=== PATIENT | female | born 1950 | race Caucasian/White ===

== ENCOUNTER 2023-09-16 14:08 | Inpatient (IN) | payer MEDICARE, OTHER ==
[~2023-09-16] VITALS: Ht 167.6 cm; Wt 94.3 kg
[2023-09-16] MEDS ORDERED: MAG HYDROX/AL HYDROX/SIMETH 30 ML LIQUID UDC PO PRN (16:15)
[2023-09-16] MEDS ORDERED: QUETIAPINE FUMARATE 25 MG TABLET PO PRN (16:15)
[2023-09-16] MEDS ORDERED: MAGNESIUM HYDROXIDE 30 ML LIQUID UDC PO PRN ×2 (16:15→17:00)
[2023-09-16] MEDS ORDERED: QUET25TA PO (16:30)
[2023-09-16] MEDS ORDERED: ACET-73 PO (16:30)
[2023-09-16] MEDS ORDERED: ATOR40TA PO (16:30)
[2023-09-16] MEDS ORDERED: FAMO20TA8 PO (16:30)
[2023-09-16] MEDS ORDERED: ASPI81TA31 PO (16:30)
[2023-09-16] MEDS ORDERED: MAGN400O6 PO (16:30)
[2023-09-16] MEDS ORDERED: METO50TA16 PO (16:30)
[2023-09-16] MEDS ORDERED: CALC-381 PO (16:30)
[2023-09-16] MEDS ORDERED: LORA-259 PO (16:30)
[2023-09-16] MEDS ORDERED: LEVE500T9 PO (16:30)
[2023-09-16] MEDS ORDERED: DIVA250T4 PO (16:30)
[2023-09-16] MEDS ORDERED: ACET325T53 PO (16:30)
[2023-09-16] MEDS: BLOOD SUGAR DIAGNOSTIC 1 EACH STRIP VI ONE (16:47)
[2023-09-16] MEDS ORDERED: ACETAMINOPHEN 325 MG TABLET PO PRN (17:00)
[2023-09-16] MEDS ORDERED: ACETAMINOPHEN 500 MG TABLET PO PRN (17:00)
[2023-09-16 17:04] VITALS: BP 149/90; TEMP 98; O2SAT 96
[2023-09-16] MEDS: ASPIRIN 81 MG TAB.CHEW PO SCH (17:42)
[2023-09-16 20:18] VITALS: BP 147/69; TEMP 98.1; O2SAT 96
[2023-09-16] MEDS: OLANZAPINE 2.5 MG TABLET PO SCH (21:13)
[2023-09-16] MEDS: ATORVASTATIN 40 MG TABLET PO SCH (21:13)
[2023-09-16] MEDS: DIVALPROEX 250 MG TABLET.DR PO SCH (21:14)
[2023-09-16] MEDS: METOPROLOL TARTRATE 50 MG TABLET PO SCH (21:14)
[2023-09-16] MEDS: levETIRAcetam 500 MG TABLET PO SCH (21:19)
[2023-09-17 07:40] LABS: BASOPHILS # (AUTO) 0.1 K/UL (0.0-0.2); BASOPHILS % (AUTO) 0.9 % (0.0-2.0); EOSINOPHILS # (AUTO) 0.3 K/uL (0.0-0.7); EOSINOPHILS % (AUTO) 3.5 % (0.0-7.0); HEMATOCRIT 39.7 % (31.2-41.9); HEMOGLOBIN 12.7 g/dL (10.9-14.3); LYMPHOCYTES # (AUTO) 1.6 K/uL (0.8-4.8); MEAN CORPUSCULAR HEMOGLOBIN 28.5 uug (24.7-32.8); MEAN CORPUSCULAR HGB CONC 32 g/dL (32.3-35.6); MEAN CORPUSCULAR VOLUME 89.2 fL (75.5-95.3); MONOCYTES # (AUTO) 0.8 K/uL (0.1-1.30); MONOCYTES % (AUTO) 8.4 % (0.0-11.0); NEUTROPHILS % (AUTO) 71.2 % (38.5-71.5); PLATELET COUNT (AUTO) 262 K/uL (179-408); RED BLOOD CELL COUNT(AUTO) 4.45 MIL/uL (3.63-4.92); RED CELL DISTRIBUTION WIDTH 14.5 % (12.3-17.7); WHITE BLOOD COUNT (AUTO) 9.8 K/uL (3.8-11.8)
[2023-09-17 07:43] LABS: DIFFERENTIAL COMMENT 1
[2023-09-17 07:52] VITALS: BP 135/60; TEMP 97.6; O2SAT 98
[2023-09-17 07:52] LABS: ALBUMIN 2.7 g/dL (3.4-5.0); BILIRUBIN,TOTAL 0.6 mg/dL (0.2-1.0); CALCIUM 8.3 mg/dL (8.5-10.1); CREATININE 1.1 mg/dL (0.6-1.3); POTASSIUM 4.1 mmol/L (3.5-5.1); TOTAL PROTEIN, SERUM 6.4 g/dL (6.4-8.2)
[2023-09-17] MEDS: FAMOTIDINE 20 MG TABLET PO SCH (09:02)
[2023-09-17] MEDS: CALCIUM CARB/VITAMIN D 500MG-200UNITS TABLET PO SCH (09:05)
[2023-09-17] MEDS: busPIRone 5 MG TABLET PO SCH (13:32)
[2023-09-17 16:00] VITALS: BP 141/63; TEMP 97.8; O2SAT 97
[2023-09-17 20:00] VITALS: BP 127/51; TEMP 98.6; O2SAT 95
[2023-09-18 08:08] VITALS: BP 145/67; TEMP 98.2; O2SAT 98
[2023-09-18 15:28] VITALS: BP 134/60; TEMP 98; O2SAT 96
[2023-09-18 20:00] VITALS: BP 130/70; TEMP 98.5; O2SAT 93
[2023-09-19 08:30] VITALS: BP 158/46; TEMP 97.7; O2SAT 98
[2023-09-19 17:08] VITALS: BP 113/46; TEMP 97.8; O2SAT 97
[2023-09-19] MEDS: OLANZAPINE 2.5 MG TABLET PO SCH (21:05)
[2023-09-19 23:44] VITALS: BP 128/48; TEMP 98; O2SAT 98
[2023-09-20 08:43] VITALS: BP 115/52; TEMP 98.2; O2SAT 98
[2023-09-20] MEDS: OLANZAPINE 2.5 MG TABLET PO SCH (09:10)
[2023-09-20] MEDS: DIVALPROEX 125 MG TABLET.DR PO SCH (14:09)
[2023-09-20 16:04] VITALS: BP 124/50; TEMP 98.1; O2SAT 98
[2023-09-20 20:18] VITALS: BP 118/52; TEMP 98.1; O2SAT 95
[2023-09-21 07:53] VITALS: BP 147/85; TEMP 98; O2SAT 98
[2023-09-21 16:03] VITALS: BP 141/65; TEMP 97.8; O2SAT 100
[2023-09-21 20:37] VITALS: BP 138/76; TEMP 97.9; O2SAT 100
[2023-09-22 08:47] VITALS: BP 114/47; TEMP 98; O2SAT 96
[2023-09-22 15:52] VITALS: BP 134/61; TEMP 98; O2SAT 96
[2023-09-22] MEDS: busPIRone 5 MG TABLET PO SCH (17:32)
[2023-09-22 20:11] VITALS: BP 118/66; TEMP 98.1; O2SAT 96
[2023-09-23 07:43] VITALS: BP 141/52; TEMP 98; O2SAT 96
[2023-09-23 15:47] VITALS: BP 115/58; TEMP 98; O2SAT 96
[2023-09-23 20:00] VITALS: BP 117/73; TEMP 98.3; O2SAT 94
[2023-09-23] MEDS: OLANZAPINE 2.5 MG TABLET PO SCH (20:13)
[2023-09-24 08:01] VITALS: BP 134/53; TEMP 98; O2SAT 98
[2023-09-24 15:23] VITALS: BP 121/44; TEMP 98; O2SAT 96
[2023-09-24 20:00] VITALS: BP 120/56; TEMP 97.5; O2SAT 95
[2023-09-24] MEDS: DIVALPROEX 125 MG TABLET.DR PO SCH (20:20)
[2023-09-25 09:49] VITALS: BP 116/59; TEMP 98; O2SAT 96
[2023-09-26 08:25] VITALS: BP 115/76; TEMP 98; O2SAT 98
[2023-09-26] MEDS: ACETAMINOPHEN 325 MG TABLET PO PRN (16:00)
[2023-09-26 17:43] VITALS: BP 131/59; TEMP 98.1; O2SAT 97
[2023-09-26 20:00] VITALS: BP 127/50; TEMP 98.2; O2SAT 95
[2023-09-27 07:58] VITALS: BP 136/56; TEMP 98.2; O2SAT 96
[2023-09-27] MEDS: OLANZAPINE 2.5 MG TABLET PO SCH (08:49)
[2023-09-27 16:46] VITALS: BP 130/65; TEMP 98.1; O2SAT 97
[2023-09-27] MEDS: IBUPROFEN 400 MG TABLET PO PRN (17:20)
[2023-09-27 20:45] VITALS: BP 134/58; TEMP 98.1; O2SAT 95
[2023-09-27] MEDS: ZOLPIDEM 5 MG TABLET PO PRN (22:06)
[2023-09-28 10:18] VITALS: BP 127/55; TEMP 98; O2SAT 96
[2023-09-28] MEDS: busPIRone 5 MG TABLET PO SCH (16:57)
[2023-09-28 19:55] VITALS: BP 132/52; TEMP 98.1; O2SAT 96
[2023-09-29 08:23] VITALS: BP 122/51; TEMP 98; O2SAT 98
[2023-09-29] MEDS: DIVALPROEX 500 MG TABLET.DR PO SCH (15:03)
[2023-09-29 19:46] VITALS: BP 118/54; TEMP 98.1; O2SAT 96
[2023-09-30 09:00] VITALS: BP 127/61; TEMP 98; O2SAT 99
[2023-09-30] MEDS: OLANZAPINE 2.5 MG TABLET PO SCH (10:09)
[2023-09-30 15:25] VITALS: BP 120/52; TEMP 98; O2SAT 96
[2023-09-30 20:00] VITALS: BP 125/45; TEMP 98; O2SAT 97
[2023-10-01 07:56] VITALS: BP 127/55; TEMP 98; O2SAT 96
[2023-10-01 09:08] VITALS: BP 127/55
== END 2023-10-01 11:30 | DRG 885 ==
LOC: GPS 15:41
PROVIDERS: ADMIT Psychiatry & Neurology Psychiatry; ATTEND Internal Medicine
DX: F39 Unspecified mood [affective] disorder (principal); G40.909 Epilepsy, unspecified, not intractable, without status epilepticus; F31.9 Bipolar disorder, unspecified; Z79.82 Long term (current) use of aspirin; Z79.899 Other long term (current) drug therapy; E78.5 Hyperlipidemia, unspecified; K21.9 Gastro-esophageal reflux disease without esophagitis; I10 Essential (primary) hypertension; S80.02XA Contusion of left knee, initial encounter; X83.8XXA Intentional self-harm by other specified means, initial encounter; Y92.232 Corridor of hospital as the place of occurrence of the external cause; Z91.81 History of falling; Z86.73 Personal history of transient ischemic attack (TIA), and cerebral infarction without residual deficits; I25.2 Old myocardial infarction; F41.9 Anxiety disorder, unspecified; R41.9 Unspecified symptoms and signs involving cognitive functions and awareness; F91.9 Conduct disorder, unspecified; F22 Delusional disorders
CPT/HCPCS: 36415; 80164; 85025; 93005; A4663; J3490